=== PATIENT | female | born 1965 | race Caucasian/White ===

== ENCOUNTER 2023-10-17 08:42 | Emergency (ER) | payer OTHER ==
[~2023-10-17] VITALS: Ht 162.6 cm; Wt 68.6 kg
[2023-10-17] MEDS ORDERED: ATIVAN 1MG T1 MG/TAB PO (08:47)
[2023-10-17 08:48] VITALS: TEMP 97.9
[2023-10-17] MEDS ORDERED: PROTONIX 40MG T40 MG PO (10:06)
[2023-10-17 10:24] VITALS: BP 144/88; PULSE 81
== END 2023-10-17 10:24 | disposition home or self-care (01) ==
LOC: COL.ER 08:42
DX: K21.00 Gastro-esophageal reflux disease with esophagitis, without bleeding (principal)
CPT/HCPCS: J8540

== ENCOUNTER 2023-11-25 10:29 | Emergency (ER) | payer OTHER ==
[~2023-11-25] VITALS: Ht 162.6 cm; Wt 65.9 kg
[~2023-11-25 10:29] MED LIST: ATIVAN 1MG T1 MG/TAB PO; PROTONIX 40MG T40 MG PO
[2023-11-25 10:34] VITALS: TEMP 98.4
[2023-11-25 11:14] LABS: COLLECTION METHOD CLEAN CATCH
[2023-11-25 11:27] LABS: AMORPHOUS CRYSTAL Present (NOT PRESENT); PH 7.5 (5.0-8.5); SQUAMOUS EPITHELIAL 0-2 /hpf (0-10); URINE APPEARANCE Clear (CLEAR/HAZY); URINE BLOOD TRACE-LYSED (NEGATIVE); URINE COLOR Yellow (YELLOW); URINE GLUCOSE Negative (NEGATIVE); URINE KETONE TRACE (NEGATIVE); URINE NITRATE Negative (NEGATIVE); URINE PROTEIN(semi-quant) Negative (NEGATIVE); URINE UROBILINOGEN 0.2 E.U/dL (0.2-1.0)
[2023-11-25 11:30] LABS: BASO % 0.5 % (0.0-2.0); GRAN # 4.3 K/mm3 (1.4-6.5); GRAN % 71.3 % (42.2-75.2); HEMATOCRIT 44.7 % (37.0-47.0); HEMOGLOBIN 14.9 g/dl (12.5-16.0); LYMPH # 1.3 K/mm3 (1.2-3.4); LYMPH % 21.4 % (20.0-51.0); MEAN CELL VOLUME 87 fl (80.0-100.0); MEAN CORPUSCULAR HEMOGLOBIN 29 pg (27-31); MEAN CORPUSCULAR HGB CONC 33 g/dl (33.0-37.0); MEAN PLATELET VOLUME 8.8 fl (7.4-10.4); MONO # 0.4 K/mm3 (0.1-0.6); MONO % 6.5 % (1.7-9.3); PLATELET COUNT 405 K/mm3 (130-400); RED BLOOD COUNT 5.13 M/mm3 (4.10-5.30); REDCELL DISTRIBUTION WIDTH-CV 13.6 % (11.5-14.5)
[2023-11-25 11:47] LABS: ALANINE AMINOTRANSFERASE 40 U/L (0-55); ALBUMIN 4.4 gm/dL (3.5-5.0); ALKALINE PHOSPHATASE 75 U/L (40-150); AST,SGOT 19 U/L (5-34); BILIRUBIN,TOTAL 0.4 mg/dL (0.2-1.2); BLOOD UREA NITROGEN 4 mg/dL (10-20); CALCIUM 9.6 mg/dL (8.4-10.2); CARBON DIOXIDE 21 mmol/L (22-29); CREATININE, serum 0.77 mg/dL (0.57-1.11); GLUCOSE 102 mg/dL (70-99); TOTAL PROTEIN 7.7 gm/dL (6.2-8.1)
[2023-11-25 11:59] LABS: ANION GAP 10 mmol/L (7-16); CHLORIDE 108 mmol/L (98-107); SODIUM 139 mmol/L (136-145)
[2023-11-25 12:06] LABS: ALCOHOL(ethanol),MEDICAL < 10 mg/dL (0-10); SALICYLATE < 5.0 mg/dL (15.0-30.0)
[2023-11-25 12:12] LABS: TRICYCLIC ANTIDEPRESS URINE NEGATIVE
[2023-11-25 12:27] LABS: ACETAMINOPHEN < 1.0 ug/mL (10-30)
[2023-11-25 14:28] VITALS: BP 138/75; PULSE 78
== END 2023-11-25 14:28 | disposition home or self-care (01) ==
LOC: COL.ER 10:29
PROVIDERS: Nurse Practitioner
DX: F41.8 Other specified anxiety disorders (principal); Z79.899 Other long term (current) drug therapy